=== PATIENT | female | born 1980 ===

== ENCOUNTER 2025-08-13 17:27 | Emergency (ER) | payer BC ==
[~2025-08-13] VITALS: Ht 170.2 cm; Wt 95.3 kg
[2025-08-13] MEDS: DICYCLOMINE HCL 10 MG CAPSULE PO STA (17:29)
[2025-08-13 17:32] VITALS: BP 141/82
[2025-08-13] MEDS ORDERED: METOCLOPRAMIDE HCL 10 MG/2 ML VIAL ONE (17:40)
[2025-08-13] MEDS ORDERED: diphenhydrAMINE 50 MG/1 ML VIAL ONE (17:40)
[2025-08-13] MEDS ORDERED: FAMOTIDINE. 20 MG/2 ML VIAL IV ONE (17:40)
[2025-08-13] MEDS ORDERED: DICYCLOMINE HCL 20 MG TABLET ONE (17:41)
[2025-08-13] MEDS ORDERED: GABA300C PO (17:48)
[2025-08-13] MEDS: IV NORMAL SALINE 1000 ML BAG IV ONE (17:48)
[2025-08-13] MEDS: METOCLOPRAMIDE HCL 10 MG/2 ML VIAL IV ONE (17:48)
[2025-08-13] MEDS: FAMOTIDINE. 20 MG/2 ML VIAL IV ONE (17:48)
[2025-08-13] MEDS: diphenhydrAMINE 50 MG/1 ML VIAL IV ONE (17:48)
[2025-08-13] MEDS ORDERED: APIX5TAB PO (17:48)
[2025-08-13 17:57] LABS: PLATELET COUNT (AUTO) 337 K/uL (179-408); RED BLOOD CELL COUNT(AUTO) 4.49 MIL/uL (3.63-4.92); RED CELL DISTRIBUTION WIDTH 15.3 % (12.3-17.7); WHITE BLOOD COUNT (AUTO) 10.3 K/uL (3.8-11.8)
[2025-08-13 18:06] LABS: CREATININE 0.8 mg/dL (0.6-1.3); ETHANOL < 3 MG/DL (0-10); SODIUM SERUM 139.0 mmol/L (136-145); UREA NITROGEN, BLOOD 10.0 mg/dL (7-18)
[2025-08-13] MEDS ORDERED: METO-295 PO (18:09)
[2025-08-13] MEDS ORDERED: FAMO-132 PO (18:09)
[2025-08-13] MEDS ORDERED: DICY-17 PO (18:09)
[2025-08-13 18:12] LABS: ASPARTATE AMINOTRANSFERASE 15.0 U/L (15-37); TOTAL PROTEIN, SERUM 7.6 g/dL (6.4-8.2)
[2025-08-13] MEDS ORDERED: ONDANSETRON 4 MG/2 ML VIAL IV ONE (18:30)
[2025-08-13 19:23] VITALS: BP 140/80; TEMP 98; O2SAT 99
== END 2025-08-13 19:23 | disposition home or self-care (01) ==
LOC: ER 17:41
DX: R11.15 Cyclical vomiting syndrome unrelated to migraine (principal); Z79.01 Long term (current) use of anticoagulants; Z86.718 Personal history of other venous thrombosis and embolism; Z79.899 Other long term (current) drug therapy
CPT/HCPCS: 83690; 85025; A4606; A4663; G0480; J1200; J1308; J2765